=== PATIENT | male | born 1960 | race Caucasian/White ===

== ENCOUNTER 2016-11-30 08:37 | Emergency (ER) | payer OTHER ==
[~2016-11-30] VITALS: Ht 193 cm; Wt 93.4 kg
[~2016-11-30 08:37] MED LIST: Z.0.NO CURRENT MEDS
[2016-11-30 08:50] VITALS: BP 150/100; PULSE 112; RESP 16; TEMP 99.4; O2SAT 100
[2016-11-30] MEDS ORDERED: SODIUM CHLORIDE 0.9% FLUSH 5 ML FLUSH IVF PRN (09:00)
[2016-11-30] MEDS ORDERED: ASPI81TA81 PO (09:14)
--- NOTE | 2016-11-30 09:14 | PD ---
HPI . Dizziness Chief Complaint: Dizziness Time Seen by Provider: 08:56 Travel History International Travel<30 days: No Contact w/Intl Traveler<30days: No Traveled to known affect area: No History of Present Illness HPI Patient presents with dizziness. Onset was this morning. Patient states that he has been feeling poorly for months. He monitor his sugar for a while and his sugar was consistently in the 300+ range. He stopped monitoring it. This morning, he was very dizzy so checked it again. Fingerstick was about 266 at home. Patient admits to a lot of water for many months. He denies polyuria. He does report some visual changes and some occasional nausea. Reports weight loss. DURATION: Many months TIMING: Worse today CONTEXT: Elevated fingerstick blood sugars at home MODIFYING FACTORS: The nurse got the history that the patient drinks a lot of alcohol with sugared sodas on a daily basis ASSOCIATED SYMPTOMS: Weight loss, thirst, visual changes PFSH Past Medical History Arthritis: No Asthma: No Autoimmune Disease: No Blood Disorders: No Anxiety: No Depression: No Heart Rhythm Problems: No Cancer: No Cardiovascular Problems: No High Cholesterol: No Chemotherapy: No Chest Pain: No Congestive Heart Failure: No COPD: No Cerebrovascular Accident: No Endocrine: No GERD: No Glaucoma: No Genitourinary: No Headaches: No Hepatitis: No Hiatal Hernia: No Hypertension: No Immune Disorder: No Kidney Stones: No Musculoskeletal: No Neurologic: No Psychiatric: No Reproductive: No Respiratory: No Migraines: No Myocardial Infarction: No Radiation Therapy: No Renal Failure: No Seizures: No Sickle Cell Disease: No Sleep Apnea: No Ulcer: No Past Surgical History AICD: No Appendectomy: No Arteriovenous Shunt: No Cholecystectomy: No Insulin Pump: No Joint Replacement: No Pacemaker: No Social History Alcohol Use: Yes (2 beers-last night-last taken) Tobacco Use: No Substance Use: No Allergies-Medications (Allergen,Severity, Reaction): Coded Allergies: No Known Allergies (Verified , 11/30/16) Reported Meds & Prescriptions Reported Meds & Active Scripts Active Metformin (Metformin HCl) 500 Mg Tab 500 Mg PO BIDPC With meals Reported Aspir-81 (Aspirin) 81 Mg Tabdr 1 Tab PO DAILY Review of Systems Except as stated in HPI: all other systems reviewed are Neg General / Constitutional: Positive: Weight Loss, No: Fever, Chills Eyes: Positive: Blurred Vision HENT: Positive: Lightheadedness Cardiovascular: No: Chest Pain or Discomfort Respiratory: No: Shortness of Breath Gastrointestinal: Positive: Nausea, No: Vomiting, Diarrhea Neurologic: Positive: Weakness, Dizziness, No: Focal Abnormalities Endocrine: Positive: Polydipsia, No: Polyuria Physical Exam Narrative GENERAL: Awake and alert and in no acute distress. SKIN: Warm but diaphoretic. HEAD: Atraumatic. Normocephalic. EYES: Pupils equal and round. Extraocular movements are intact. ENT: No nasal bleeding or discharge. Mucous membranes pink and moist. He does not smell of ketones. NECK: Trachea midline. Neck is supple. CARDIOVASCULAR: Bigeminy rhythm with a rate of about 120. RESPIRATORY: No accessory muscle use. Lungs are clear with full air movement throughout. GASTROINTESTINAL: Abdomen soft, non-tender, nondistended. MUSCULOSKELETAL: No obvious deformities. No edema. NEUROLOGICAL: Awake and alert. No obvious cranial nerve deficits. Motor grossly within normal limits. Normal speech. PSYCHIATRIC: Appropriate mood and affect; insight and judgment normal. Data Data Last Documented VS Vital Signs Date Time Temp Pulse Resp B/P Pulse Ox O2 Delivery O2 Flow Rate FiO2 11/30/16 11:10 98 16 99 Room Air 11/30/16 11:00 164/102 11/30/16 08:50 99.4 Orders Electrocardiogram (11/30/16 08:57) Basic Metabolic Panel (Bmp) (11/30/16 08:57) Complete Blood Count With Diff (11/30/16 08:57) Ckmb (Isoenzyme) Profile (11/30/16 08:57) Troponin I (11/30/16 08:57) Urinalysis - C+S If Indicated (11/30/16 08:57) Iv Access Insert/Monitor (11/30/16 08:57) Sodium Chloride 0.9% Flush (Ns Flush) (11/30/16 09:00) Sodium Chlor 0.9% 1000 Ml Inj (Ns 1000 M (11/30/16 09:15) CKMB (11/30/16 09:20) CKMB% (11/30/16 09:20) Labs Laboratory Tests Test 11/30/16 11/30/16 09:20 10:50 White Blood Count 10.4 TH/MM3 Red Blood Count 5.27 MIL/MM3 Hemoglobin 16.9 GM/DL Hematocrit 49.9 % Mean Corpuscular Volume 94.7 FL Mean Corpuscular Hemoglobin 32.1 PG Mean Corpuscular Hemoglobin 33.9 % Concent Red Cell Distribution Width 11.4 % Platelet Count 263 TH/MM3 Mean Platelet Volume 8.2 FL Neutrophils (%) (Auto) 75.2 % Lymphocytes (%) (Auto) 15.6 % Monocytes (%) (Auto) 7.8 % Eosinophils (%) (Auto) 0.6 % Basophils (%) (Auto) 0.8 % Neutrophils # (Auto) 7.8 TH/MM3 Lymphocytes # (Auto) 1.6 TH/MM3 Monocytes # (Auto) 0.8 TH/MM3 Eosinophils # (Auto) 0.1 TH/MM3 Basophils # (Auto) 0.1 TH/MM3 CBC Comment DIFF FINAL Differential Comment Sodium Level 136 MEQ/L Potassium Level 3.8 MEQ/L Chloride Level 97 MEQ/L Carbon Dioxide Level 25.3 MEQ/L Anion Gap 14 MEQ/L Blood Urea Nitrogen 8 MG/DL Creatinine 1.00 MG/DL Estimat Glomerular Filtration 77 ML/MIN Rate Random Glucose 351 MG/DL Calcium Level 9.0 MG/DL Total Creatine Kinase 127 U/L Creatine Kinase MB 2.7 NG/ML Troponin I 0.02 NG/ML Urine Color YELLOW Urine Turbidity CLEAR Urine pH 6.0 Urine Specific [place] 1.025 Urine Protein NEG mg/dL Urine Glucose (UA) 1000 OR GREATER mg/dL Urine Ketones 15 mg/dL Urine Occult Blood NEG Urine Nitrite NEG Urine Bilirubin NEG Urine Leukocyte Esterase NEG Urine RBC 0-3 /hpf Urine WBC 3-5 /hpf Urine Squamous Epithelial 0-5 /hpf Cells Urine Bacteria RARE /hpf Urine Hyaline Casts 0-2 /lpf Urine Mucus FEW /lpf Microscopic Urinalysis Comment CULT NOT INDICATED MDM Medical Decision Making Medical Screen Exam Complete: Yes Emergency Medical Condition: Yes Medical Record Reviewed: Yes (patient was evaluated for chest pain in 2006. He had an echo done at that time which showed LVH with normal ventricular function and ejection fraction of 60%.) Interpretation(s) EKG shows an underlying sinus rhythm. He had some bigeminy on EKG but was not in a bigeminy the entire time that the EKG was being performed. I do not see any ST segment elevation or depression. Differential Diagnosis Differential diagnosis of weakness includes but is not limited to infection, CVA , electrolyte disturbance, renal failure, hypoglycemia, UTI, ACS, acute blood loss Narrative Course Patient presents with dizziness. Fingerstick blood sugar prior to presentation was elevated at > 250. CBC & BMP Diagram 11/30/16 09:20 UA is negative with the exception of glucose. Diagnosis Primary Impression: Dizziness Additional Impression: Diabetes Qualified Code: E11.9 - Type 2 diabetes mellitus without complication, without long-term current use of insulin Med/Other Pt SpecificInfo: Prescription(s) given Scripts Metformin 500 Mg [id number] Mg PO BIDPC #60 TAB Ref 0 With meals Prov:Danni Renee MD 11/30/16 Disposition: 01 DISCHARGE HOME Condition: Stable Danni Renee MD Nov 30, 2016 09:14
[2016-11-30] MEDS ORDERED: SODIUM CHLOR 0.9% 1000 ML INJ 1,000 ML IV ONE (09:15)
[2016-11-30 09:42] LABS: AUTOMATED NEUTROPHIL # 7.8 TH/MM3 (1.8-7.7); BASOPHIL # 0.1 TH/MM3 (0-0.2); BASOPHIL % 0.8 % (0.0-2.0); EOSINOPHIL # 0.1 TH/MM3 (0-0.4); EOSINOPHIL % 0.6 % (0.0-4.0); HEMATOCRIT 49.9 % (39.0-51.0); HEMO FLAGS DIFF FINAL; LYMPH % 15.6 % (9.0-44.0); LYMPHOCYTE # 1.6 TH/MM3 (1.0-4.8); MEAN CELL VOLUME 94.7 FL (80.0-100.0); MEAN CORPUSCULAR HEMOGLOBIN 32.1 PG (27.0-34.0); MEAN CORPUSCULAR HGB CONC 33.9 % (32.0-36.0); MONO % 7.8 % (0.0-8.0); NEUT % 75.2 % (16.0-70.0); PLATELET COUNT 263 TH/MM3 (150-450); RED BLOOD COUNT 5.27 MIL/MM3 (4.50-5.90); RED CELL DISTRIBUTION WIDTH 11.4 % (11.6-17.2); WHITE BLOOD COUNT 10.4 TH/MM3 (4.0-11.0)
[2016-11-30 09:49] VITALS: BP 151/115; PULSE 100; RESP 16
[2016-11-30 09:51] VITALS: BP 154/108; PULSE 99; RESP 16
[2016-11-30 09:55] LABS: BICARBONATE 25.3 MEQ/L (21.0-32.0); BLOOD UREA NITROGEN 8 MG/DL (7-18)
[2016-11-30 09:58] LABS: ANION GAP 14 MEQ/L (5-15); CHLORIDE 97 MEQ/L (98-107); GLOMERULAR FILTRATION RATE 77 ML/MIN (>89); POTASSIUM 3.8 MEQ/L (3.5-5.1); SODIUM (NA) 136 MEQ/L (136-145)
[2016-11-30 10:01] LABS: CREATINE KINASE 127 U/L (39-308)
[2016-11-30 10:13] LABS: CKMB 2.7 NG/ML (0.5-3.6)
[2016-11-30] MEDS ORDERED: METF500T PO (10:45)
[2016-11-30 11:00] VITALS: BP 164/102; PULSE 95; RESP 16; O2SAT 99
[2016-11-30 11:10] LABS: BLOOD, URINE NEG (NEG); KETONE, URINE 15 mg/dL (NEG); NITRITE,URINE NEG (NEG)
[2016-11-30 11:12] LABS: GLUCOSE,URINE 1000 OR GREATER mg/dL (NEG); URINE COLOR YELLOW (YELLW/STRAW)
[2016-11-30 11:18] LABS: HYALINE CAST, URINE 0-2 /lpf (RARE); MUCUS URINE FEW /lpf (OCC)
[2016-11-30 11:19] LABS: RBC, URINE 0-3 /hpf (0-3)
[2016-11-30 11:22] LABS: BACTERIA, URINE RARE /hpf; COMMENT (UR) CULT NOT INDICATED; CULTURE IF INDICATED CULT NOT INDICATED; SQUAMOUS EPITHELIAL CELL URINE 0-5 /hpf (0-5)
[2016-11-30 11:51] VITALS: BP 157/103
--- NOTE | 2016-11-30 15:31 | EKG ---
Date Performed: 11/30/2016 Time Performed: 09:04:04 PTAGE: 56 years EKG: Sinus tachycardia with PVC(s) with PAC(s) Lateral ST-T changes are nonspecific Compared to previous tracing the minimal lateral ST segment changes are new, frequent PVCs are new Abnormal ECG PREVIOUS TRACING : 03/01/2007 06.50 DOCTOR: Nancy Bustos Interpretating Date/Time 11/30/2016 15:29:11
== END 2016-11-30 12:08 | disposition home or self-care (01) ==
LOC: PHED 08:37
DX: R42 Dizziness and giddiness (principal); R11.0 Nausea; R63.4 Abnormal weight loss; H53.8 Other visual disturbances; R53.1 Weakness; R63.1 Polydipsia; R00.0 Tachycardia, unspecified; I49.3 Ventricular premature depolarization; R94.31 Abnormal electrocardiogram [ECG] [EKG]
CPT/HCPCS: 80048; 81001; 82550; 82552; 84484; 85025; 93005; 96360; 99285; J7030